=== PATIENT | male | born 1990 | race Two or more races ===

== ENCOUNTER 2021-07-15 16:03 | Emergency (ER) | payer OTHER ==
[2021-07-15 16:19] VITALS: BP 140/78; PULSE 88; RESP 18; TEMP 99
[2021-07-15 17:04] LABS: Amphetamine Screen,Urine Not Detected (NotDetected); Barbiturate Screen,Urine Not Detected (NotDetected); Benzodiazepines Screen,Urine Not Detected (NotDetected); Cocaine Screen,Urine Not Detected (NotDetected); Methadone Screen, Urine Not Detected (NotDetected); Opiate Screen,Urine Not Detected (NotDetected); Oxycodone Screen, Urine Not Detected (NotDetected); Phencyclidine Screen,Urine Not Detected (NotDetected); Tricyclic Antidepressant,Urine Not Detected (NotDetected); Urn Cannabinoid Scrn Detected (NotDetected)
--- NOTE | 2021-07-15 17:55 | ED ---
General Adult HPI - General Chief complaint: Psychiatric Symptoms Stated complaint: Mental health eval Time Seen by Provider: 07/15/21 16:45 Source: patient, RN notes reviewed, old records reviewed Mode of arrival: ambulatory Limitations: no limitations - History of Present Illness Initial comments: This is a 30-year-old male who presents emergency Department because he states that he is been getting more more angry lately and is afraid that he may lash out again some people that he has been holding some crutches against. Patient also states he can't have a rational argument with his without getting extremely angry and rational. Patient states he thinks a lot of this stems from the fact that he had 2 brothers commit suicide at 30 and 2 years ago his father was murdered. 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 ROS Other: All systems not noted in ROS Statement are negative. Past Medical History Past Medical History: No Reported History History of Any Multi-Drug Resistant Organisms: None Reported Additional Past Surgical History / Comment(s): vasectomy Past Psychological History: No Psychological Hx Reported Smoking Status: Current some day smoker, Vaper Past Alcohol Use History: Rare Past Drug Use History: Marijuana General Exam - General Exam Comments Initial Comments: GENERAL: Patient is well-developed and well-nourished. Patient is nontoxic and well- hydrated and is in no acute distress. ENT: Neck is soft and supple. No significant lymphadenopathy is noted. Oropharynx is clear. Moist mucous membranes. Patient Neck has full range of motion without eliciting any pain. EYES: The sclera were anicteric and conjunctiva were pink and moist. Extraocular movements were intact and pupils were equal round and reactive to light. Eyelids were unremarkable. PULMONARY: Unlabored respirations. Good breath sounds bilaterally. No audible rales rhonchi or wheezing was noted. CARDIOVASCULAR: There is a regular rate and rhythm without any murmurs gallops or rubs. ABDOMEN: Soft and nontender with normal bowel sounds. SKIN: Skin is clear with no lesions or rashes and otherwise unremarkable. NEUROLOGIC: Patient is alert and oriented x3. Cranial nerves II through XII are grossly intact. Motor and sensory are also intact. Normal speech, volume and content. Symmetrical smile. MUSCULOSKELETAL: Normal extremities with adequate strength and full range of motion. LYMPHATICS: No significant lymphadenopathy is noted PSYCHIATRIC: Patient seems depressed and upset. Patient denies actual suicidal ideations and denies any homicidal ideations however he does think it's possible that he might harm somebody because he is becoming more more angry. Patient is tearful throughout his interview Limitations: no limitations Course Vital Signs 07/15/21 16:15 Temperature 99 F Pulse Rate 88 Respiratory 18 Rate Blood Pressure 140/78 O2 Sat by Pulse 99 Oximetry Medical Decision Making - Medical Decision Making EPS evaluated the patient and determined the patient could follow-up as an outpatient. Patient was in agreement with this is a deep plan was put in place and patient will be discharged. - Lab Data Lab Results 07/15/21 Range/Units 16:22 Urine Opiates Screen Not Detected (NotDetected) Ur Oxycodone Screen Not Detected (NotDetected) Urine Methadone Screen Not Detected (NotDetected) Ur Propoxyphene Screen Not Detected (NotDetected) Ur Barbiturates Screen Not Detected (NotDetected) U Tricyclic Antidepress Not Detected (NotDetected) Ur Phencyclidine Scrn Not Detected (NotDetected) Ur Amphetamines Screen Not Detected (NotDetected) U Methamphetamines Scrn Not Detected (NotDetected) U Benzodiazepines Scrn Not Detected (NotDetected) Urine Cocaine Screen Not Detected (NotDetected) U Marijuana (THC) Screen Detected H (NotDetected) Disposition Clinical Impression: Mood disorder Disposition: HOME SELF-CARE Condition: Good Instructions (If sedation given, give patient instructions): Mood Disorders (ED) Additional Instructions: Patient should follow-up her EPS is instructions Is patient prescribed a controlled substance at d/c from ED?: No Referrals: None,Stated [Primary Care Provider] - 1-2 days Time of Disposition: 21:24
== END 2021-07-15 21:51 | disposition home or self-care (01) ==
LOC: EC 16:03
DX: F39 Unspecified mood [affective] disorder (principal); F17.200 Nicotine dependence, unspecified, uncomplicated
CPT/HCPCS: 80306; 82075; 99284